=== PATIENT | male | born 1940 | race Caucasian/White ===

== ENCOUNTER 2016-11-13 14:45 | Emergency (ER) | payer MEDICARE, BC ==
--- NOTE | 2016-11-13 14:51 | Emergency Department Record ---
History of Present Illness - General Chief Complaint: Fall Injury Stated Complaint: FELL ON PORCH RAIL Time Seen by Provider: 11/13/16 14:45 Source: Patient, Family Mode of Arrival: Ambulatory Limitations: No limitations - History of Present Illness Initial Comments: 76 yo male presents with chest and abdominal pain after falling 8 feet from a ladder. He landed on his chest and abdomen. He denies and head or neck pain. He is on Plavix. No extremity pain. No LOC. No alcohol. It hurts to move or breath. PCP is Dr Ayers. 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: No Place Fall Occurred: Home Loss of Consciousness: None Prolonged Down Time?: No Symptoms Prior to Fall: None Location: Chest, Abdomen Severity: Severe Quality: Aching Associated Symptoms: Denies - [place] Coma Scale Eye Response: (4) Open spontaneously Motor Response: (6) Obeys commands Verbal Response: (5) Oriented [place] Total: 15 - Related Data Home Medications Medication Instructions Recorded Confirmed Last Taken Aspirin [Aspirin EC] 81 mg PO DAILY 11/13/16 11/13/16 1 Day Ago ~11/12/16 Clopidogrel Bisulfate [Clopidogrel] 75 mg PO DAILY 11/13/16 11/13/16 1 Day Ago ~11/12/16 Previous Rx's Medication Instructions Recorded Hydrocodone/Acetaminophen [M[place] 1 each PO Q8H #15 tablet 11/13/16 5-325 Tablet] Allergies Allergy/AdvReac Type Severity Reaction Status Date / Time No Known Allergies Allergy HYPERSENSIT Verified 11/13/16 14:51 IVITY Review of Systems Constitutional: Denies: Chills, Fever, Malaise, Weakness Eyes: Denies: Eye discharge ENT: Denies: Congestion, Throat pain Respiratory: Reports: As per HPI, Dyspnea Cardiovascular: Reports: As per HPI, Chest pain Endocrine: Denies: Fatigue Gastrointestinal: Denies: Abdominal pain, Diarrhea, Nausea, Vomiting Genitourinary: Denies: Dysuria, Frequency, Hematuria Musculoskeletal: Denies: Arthralgia, Back pain, Joint swelling, Myalgia, Neck pain Skin: Denies: Bruising, Change in color, Rash Neurological: Denies: Headache, Numbness, Tremors, Vertigo, Weakness Psychiatric: Denies: Anxiety Hematological/Lymphatic: Denies: Blood Clots, Easy bleeding, Easy bruising, Swollen glands Past Medical History - SOCIAL HISTORY Smoking Status: Former smoker Alcohol Use Comment: daily 2-3 beers for 50 years Drug Use: None - RESPIRATORY Hx Asthma: Yes Hx Bronchitis: Yes Hx COPD: Yes - CARDIOVASCULAR Hx Cardiac Cath: Yes (one vessel 40% occluded) Hx Hypertension: Yes Comment:: high choesterol - NEURO Hx CVA: Yes (2009) Comment:: visual changes - GI Hx Reflux: Yes Hx Hiatal Hernia: Yes Comment:: Barretts esaphagus - Hx Genitourinary Disorders: No - ENDOCRINE Hx Diabetes: No Hx Thyroid Disease: Yes (but no medications) - MUSCULOSKELETAL Hx Arthritis: Yes - PSYCH Hx Psych Problems: No - HEMATOLOGY/ONCOLOGY Hx Blood Disorders: Yes Hx Bruising: Yes Comment:: on blood thinners Physical Exam - General General Appearance: Alert, Oriented x3, Cooperative, No acute distress, Anxious - Head Head exam: Atraumatic, Normocephalic, Normal inspection Head exam detail: negative: Abrasion, Contusion, Richard's sign, General tenderness, Hematoma, Laceration - Eye Eye exam: Normal appearance, PERRL. negative: Conjunctival injection, Periorbital swelling Pupils: Normal accommodation - ENT ENT exam: Normal exam, Mucous membranes moist Ear exam: Normal external inspection Nasal Exam: Normal inspection Mouth exam: Normal external inspection Teeth exam: Normal inspection - Neck Neck exam: Normal inspection, Full ROM. negative: Tenderness - Respiratory Respiratory exam: Chest wall tenderness (tender across the lower chest), Decreased breath sounds (symmetric bilateral). negative: Respiratory distress - Cardiovascular Cardiovascular Exam: Regular rate, Normal rhythm, Normal heart sounds - GI/Abdominal GI/Abdominal exam: Soft, Tenderness - Rectal Rectal exam: Deferred - exam: Deferred - Extremities Extremities exam: Normal inspection, Full ROM, Normal capillary refill. negative: Tenderness - Back Back exam: Reports: Normal inspection, Full ROM. Denies: Muscle spasm, Rash noted, Tenderness - Neurological Neurological exam: Alert, Normal gait, Oriented X3, Reflexes normal - Psychiatric Psychiatric exam: Normal affect, Normal mood - Skin Skin exam: Dry, Intact, Normal color, Warm Course - Reevaluation(s) Reevaluation #1: Given the age and fall height on Plavix the patient was made a trauma activation 11/13/16 14:54 Reevaluation #2: The Chest CT reviewed. No acute injury. HCT was negative for acute injury 11/13/16 15:59 Reevaluation #3: The patient is doing well with controlled pain Rt worked with the patient on lung/chest exercises to ensure clearing of secretions He is not short of breath. Oxygen levels consistently mid to upper 90's DC home on pain medication and IS instructions We thoroughly discussed reasons to return and follow up 11/13/16 16:58 Reevaluation #4: The patient ambulated well with controlled pain He is eager and ready for DC 11/13/16 17:22 Medical Decision Making - Lab Data Result diagrams: 11/13/16 14:50 11/13/16 14:50 Disposition Disposition: Discharge Clinical Impression: Chest wall contusion Qualifiers: Encounter type: initial encounter Laterality: unspecified laterality Qualified Code(s): S20.219A - Contusion of unspecified front wall of thorax, initial encounter Disposition: Home, Self-Care Condition: (1) Good Instructions: Contusion in Adults (ED) Additional Instructions: Take deep breaths and sigh or cough as we discussed in the ED Return if you are in uncontrolled pain, short of breath or any new concerns Call your doctor to review all the results of the CT scans and for a recheck Prescriptions: Hydrocodone/Acetaminophen [M[place] 5-325 Tablet] 1 each PO Q8H #15 tablet Forms: Patient Portal Access Time of Disposition: 17:02 Quality - Quality Measures Quality Measures: N/A - Blood Pressure Screening Does Patient Have Any of the Following: No Blood Pressure Classification: Pre-Hypertensive BP Reading Systolic Measurement: 127 Diastolic Measurement: 52 Screening for High Blood Pressure: < Pre-Hypertensive BP, F/U Documented > [ [id number]] Pre-Hypertensive Follow-up Interventions: Referral to alternative/primary care provider.
[2016-11-13 14:53] LABS: BASO % 0.2 % (0-6); EOS % 1.5 % (0-6); HEMATOCRIT 42.7 % (42.0-52.0); HEMOGLOBIN 14.6 gm/dl (14.0-18.0); MEAN CELL VOLUME 88.4 fl (81-97); MEAN CORPUSCULAR HEMOGLOBIN 30.2 pg (27-33); MEAN CORPUSCULAR HGB CONC 34.2 g/dl (32-36); MEAN PLATELET VOLUME 9.4 fl (7.4-10.4); MONO % 10.3 % (0-9); PLATELET COUNT 244 K/uL (130-400); RED BLOOD COUNT 4.83 M/uL (4.40-5.70); WHITE BLOOD COUNT W/O DIFF 9.6 K/uL (4.2-12.2)
[2016-11-13] MEDS: FENTANYL PF 100MCG/2ML VIAL IVP ONE (14:54)
[2016-11-13] MEDS: 0.9 % SODIUM CHLORIDE 1,000 ML BAG IV ONE (14:54)
[2016-11-13 15:07] LABS: ALB/GLOB RATIO 1.8 (1.1-1.8); ALBUMIN 4.8 gm/dL (3.5-5.0); ANION GAP 13.6 (7-16); BILIRUBIN,TOTAL 0.79 mg/dL (0.2-1.3); CARBON DIOXIDE 22.4 mmol/L (22-30); CREATININE 1.3 mg/dL (0.66-1.25); INR 0.91; PARTIAL THROMBOPLASTIN TIME 24.5 SECONDS (24.5-39.1); PROTHROMBIN TIME (PATIENT) 9.8 SECONDS (9.5-12.1); TOTAL PROTEIN 7.4 gm/dL (6.3-8.2)
[2016-11-13 15:08] LABS: ALCOHOL 0.1 g/dL (0-0.010)
[2016-11-13 15:17] LABS: TROPONIN I 0.022 ng/mL (0.00-0.034)
[2016-11-13 16:09] LABS: ABO GROUP O; ANTIBODY SCREEN NEGATIVE (NEGATIVE); RH TYPE POSITIVE
--- NOTE | 2016-11-14 22:56 | CT SCAN REPORT ---
EXAM: CT SCAN CHEST W CONTRAST HISTORY: FALL FROM LADDER. RIGHT-SIDED CHEST, ABDOMEN, AND PELVIC PAIN. PATIENT DENIES LOSS OF CONSCIOUSNESS. DIFFICULTY IN BREATHING. TECHNIQUE: Routine contrast-enhanced helical CT examination of the chest, abdomen, and pelvis is performed including delayed images through the kidney with 100 mL of Omnipaque-300. Please see separate CT abdomen and pelvis report. COMPARISON: CT angiogram of the chest dated 11/13/15. FINDINGS: The heart is at the upper limits of normal in size. There is moderate atherosclerotic calcification of the coronary arteries. There is diffuse atherosclerosis of the thoracic aorta without focal aneurysmal dilatation, nor dissection. 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 This is stable. No new mediastinal or hilar mass/ lymphadenopathy. No evidence of a mediastinal hematoma. Biapical lung scarring is redemonstrated as well as bilateral emphysema, most pronounced in the upper lungs. Bilateral pleural plaques redemonstrated, some of which have a nodular configuration and many of which are calcified. There are also several small calcified nodules in the periphery of each lung. Overall , this pattern is not significantly changed. This pattern can be seen with asbestos exposure. No new or enlarging lung nodule. No lung consolidation, pleural effusion, or pericardial effusion. No lytic or blastic bone lesion. No definite acute osseous fracture. IMPRESSION: 1. NO CONVINCING CT EVIDENCE OF AN ACUTE INTRATHORACIC ABNORMALITY WITHOUT SIGNIFICANT CHANGE SINCE CTA CHEST EXAMINATION DATED 11/13/15. 2. DIFFUSE ATHEROSCLEROSIS WITHOUT ANEURYSMAL DILATATION OR EVIDENCE OF DISSECTION. ABERRANT RIGHT SUBCLAVIAN ARTERY. 3. MULTIPLE PLEURAL PLAQUES AGAIN NOTED BILATERALLY, THE MAJORITY OF WHICH ARE CALCIFIED AND THERE ARE SEVERAL CALCIFIED PERIPHERAL LUNG NODULES, THE PATTERN OF WHICH IS UNCHANGED. THIS PATTERN CAN BE SEEN WITH ASBESTOS EXPOSURE. JOB NUMBER: [id number] [facility]
--- NOTE | 2016-11-14 23:06 | CT SCAN REPORT ---
EXAM: CT SCAN HEAD WO CONTRAST HISTORY: FALL FROM LADDER. NO DEFINITE LOSS OF CONSCIOUSNESS. TECHNIQUE: Routine noncontrast CT examination of the head. COMPARISON: CT head without and with contrast dated 04/19/16. FINDINGS: The subarachnoid spaces remain mildly dilated consistent with age- related atrophy. The ventricles are not enlarged. Minor periventricular and subcortical white matter lucencies are again noted scattered in each cerebral hemisphere, primarily in the frontal lobes. This pattern is unchanged. These are nonspecific but likely areas of chronic small vessel ischemia. No definite new area of abnormally increased or decreased attenuation is noted throughout the brain substance. No definite abnormal extraaxial fluid collection is seen, though evaluation at the lower levels is slightly limited by patient motion. No skull fracture is identified. A small retention cyst or less likely a polyp arises within the lower aspect of the right maxillary sinus and there is opacification of a single right ethmoid air cell, stable. Post cataract surgery changes are noted bilaterally. The orbits, as visualized, are otherwise unremarkable. IMPRESSION: 1. THE EXAMINATION IS MILDLY LIMITED BY PATIENT MOTION. NO CONVINCING CT EVIDENCE OF AN ACUTE INTRACRANIAL ABNORMALITY, NOR SKULL FRACTURE WITHOUT CHANGE IN APPEARANCE OF THE BRAIN SINCE 04/19/16. 2. MILD GENERALIZED ATROPHY. MINOR WHITE MATTER LUCENCIES IN EACH CEREBRAL HEMISPHERE ARE NONSPECIFIC, THOUGH LIKELY AREAS OF CHRONIC SMALL VESSEL ISCHEMIA. JOB NUMBER: [id number] [facility]
--- NOTE | 2016-11-14 23:21 | CT SCAN REPORT ---
EXAM: CT SCAN CERVICAL SPINE WO CONTRAST HISTORY: FALL OFF OF 8 LADDER. RIGHT-SIDED PAIN. NO LOSS OF CONSCIOUSNESS. TECHNIQUE: Thin-collimation helical CT examination of the cervical spine is performed without intravenous contrast. Coronal and sagittal reformatted images are generated and reviewed. COMPARISON: No prior imaging of the cervical spine available for comparison. Same-day noncontrast CT examination of the head. Same-day contrast-enhanced CT chest examination. FINDINGS: There is borderline osteopenia. There is straightening of the normal cervical lordosis. There is minimal retrolisthesis of C3 on C4. The vertebral bodies are otherwise normal in alignment and height. Minimal anterior wedging of T1 is visualized having a chronic appearance. The vertebral bodies are otherwise normal in height. No acute fracture, destructive bone lesion, or prevertebral soft tissue swelling is seen. Multilevel degenerative disc/degenerative endplate changes are present with relative sparing at the C2-C3 and C7-T1 levels. The changes at the C3-C4 and C5- C6 levels are moderate to severe and those at the C6-C7 level moderate. The changes at the C4-C5 level are mild. A disc spur complex at the C3-C4 level causes ventral sac flattening with mild central canal stenosis. No other osseous cervical spinal stenosis is seen. Multilevel uncovertebral joint spurring and facet arthropathy is present. That on the right is most pronounced at the C4-C5 level, where it is severe. That on the left is most pronounced at the C2-C3 level, also severe. The changes elsewhere are mild to moderate. Multilevel bilateral neural foraminal narrowing of varying degrees is present secondary to uncovertebral joint and facet degenerative change. The narrowing on the right is most pronounced at the C3-C4 level, where it is moderate to severe and on the left most pronounced at the C4-C5 level, where it is moderate in degree. There is atherosclerotic calcification of the carotid bifurcations, mild to moderate in degree. No definite cervical mass, nor adenopathy. Biapical lung scarring is present as well as mild centrilobular emphysema. There is an equivocal subpleural nodule in the lateral right lung apex measuring 2.2 mm. This is nonspecific, though probably postinflammatory. This is not well seen on the same-day CT chest examination. IMPRESSION: 1. NO CONVINCING ACUTE FRACTURE, SUSPICIOUS SUBLUXATION, OR PREVERTEBRAL SOFT TISSUE SWELLING. 2. MULTILEVEL DEGENERATIVE CHANGES, DETAILED ABOVE. MINIMAL RETROLISTHESIS OF C3 ON C4, LIKELY RELATING TO DEGENERATIVE DISC AND FACET DEGENERATIVE CHANGES. 3. MILD CENTRAL CANAL STENOSIS AT THE C3-C4 LEVEL. JOB NUMBER: [id number] [facility]
--- NOTE | 2016-11-14 23:36 | CT SCAN REPORT ---
EXAM: CT SCAN ABDOMEN/PELVIS W CONTRAST HISTORY: FALL FROM 8 LADDER TODAY. RIGHT-SIDED CHEST, ABDOMEN, AND PELVIS PAIN. TECHNIQUE: Following oral and IV contrast utilization, helical CT examination of the chest, abdomen, and pelvis is performed including delayed images through the kidneys with 100 mL of Omnipaque-[address] utilized. Please see separate CT chest report. COMPARISON: No prior imaging of the abdomen nor pelvis. FINDINGS: As demonstrated on the same-day CT chest examination, there are pleural plaques scattered in the lower aspects of each hemithorax, the majority of which are calcified. There are also calcified nodules in the peripheral lung bases. These findings may relate to asbestos exposure and the pattern is not significantly changed since a CTA examination of the chest dated 11/13/15. No pleural or pericardial effusion is seen. The heart is near the upper limits of normal in size. Bilateral coronary artery calcifications are present. No focal abnormality is demonstrated in the liver, spleen, pancreas, adrenal glands, nor kidneys. The gallbladder is unremarkable and no biliary ductal dilatation is seen. No intraabdominal, nor retroperitoneal lymphadenopathy is identified. There is diffuse atherosclerosis without focal aneurysmal dilatation of the abdominal aorta, nor iliac arteries. The prostate gland is mildly enlarged. No intrinsic urinary bladder abnormality is seen, though evaluation is limited by lack of distention. There is diverticulosis of the left colon, most pronounced in the sigmoid region , where it is moderate in degree. There is no associated diverticulitis. No gross bowel dilatation or bowel wall thickening is seen. By history, the appendix is surgically absent. There is mild fat-density prominence in each inguinal canal consistent with spermatic cord lipomas or fat within small inguinal hernia sacs. No convincing acute osseous fracture is identified. There are degenerative changes scattered throughout the visualized spine associated with dextroconvex scoliosis centered at the thoracolumbar junction. IMPRESSION: 1. NO CT EVIDENCE OF ACUTE VISCERAL INJURY. 2. COLONIC DIVERTICULOSIS WITHOUT EVIDENCE OF DIVERTICULITIS. 3. MILD FAT-DENSITY PROMINENCE IN EACH INGUINAL CANAL CONSISTENT WITH SPERMATIC CORD LIPOMAS OR FAT WITHIN SMALL INGUINAL HERNIA SACS. 4. NOT MENTIONED ABOVE IS A DERMAL/SUBDERMAL NODULE IN THE LOWER ABDOMINAL WALL LEFT OF MIDLINE MEASURING 1.8 X 1.1 CM. THIS HAS FLUID DENSITY AND IS LIKELY A BENIGN CYST. 5. PLEURAL PLAQUES SCATTERED WITHIN THE VISUALIZED HEMITHORAX BASES, THE MAJORITY OF WHICH ARE CALCIFIED. ADDITIONALLY, THERE ARE MULTIPLE CALCIFIED NODULES IN THE PERIPHERAL LUNG BASES. THESE FINDINGS CAN BE SEEN WITH ASBESTOS EXPOSURE. JOB NUMBER: [id number] [facility]
== END 2016-11-13 17:28 | disposition home or self-care (01) ==
LOC: ER 14:45
DX: S20.219A Contusion of unspecified front wall of thorax, initial encounter (principal); R06.00 Dyspnea, unspecified; R10.9 Unspecified abdominal pain; M54.2 Cervicalgia; J34.1 Cyst and mucocele of nose and nasal sinus; J44.9 Chronic obstructive pulmonary disease, unspecified; Z79.02 Long term (current) use of antithrombotics/antiplatelets; Z87.891 Personal history of nicotine dependence; W11.XXXA Fall on and from ladder, initial encounter; Y92.007 Garden or yard of unspecified non-institutional (private) residence as the place of occurrence of the external cause
CPT/HCPCS: 99284 ×2; 96374; 82550; 85025; 85730; 85610; 84484; 80053; 86900; 86901; 86850; 72125; 71260; 70450; 74177; G0480; Q9967; J3010; 80320; J7030